=== PATIENT | female | born 1955 | race Two or more races ===

== ENCOUNTER 2018-12-27 13:43 | Outpatient (CLI) | payer OTHER | END 2018-12-27 13:46 | disposition home or self-care (01) | LOC: LAB 13:43 → MAMO-SONO 13:45 → LAB 13:45 | DX: D64.89 Other specified anemias (principal); Z12.11 Encounter for screening for malignant neoplasm of colon; E03.8 Other specified hypothyroidism; N95.1 Menopausal and female climacteric states; I10 Essential (primary) hypertension; C51.9 Malignant neoplasm of vulva, unspecified; N30.00 Acute cystitis without hematuria; E83.51 Hypocalcemia; A64 Unspecified sexually transmitted disease; R97.8 Other abnormal tumor markers; R79.89 Other specified abnormal findings of blood chemistry ==

== ENCOUNTER 2018-12-27 14:05 | Outpatient (CLI) | payer OTHER | END 2018-12-27 14:12 | disposition home or self-care (01) | LOC: NUCLEAR 14:05 | DX: M81.0 Age-related osteoporosis without current pathological fracture (principal) ==

== ENCOUNTER → 2018-12-27 | Outpatient (CLI) | payer OTHER | END | disposition home or self-care (01) | LOC: MAMO-SONO 13:34 | DX: Z12.31 Encounter for screening mammogram for malignant neoplasm of breast (principal); N60.11 Diffuse cystic mastopathy of right breast; N60.12 Diffuse cystic mastopathy of left breast ==